=== PATIENT | female | born 1985 | race Caucasian/White ===

== ENCOUNTER 2021-02-05 15:16 | Emergency (ER) | payer SELFPAY ==
[~2021-02-05] VITALS: Ht 170.2 cm; Wt 390.0 kg
[2021-02-05] MEDS ORDERED: FAMOTIDINE 20 MG/2 ML VIAL IVP ONE (16:00)
[2021-02-05] MEDS ORDERED: IV NORMAL SALINE 1000ML BAG 1,000 ML IV ONE (16:00)
[2021-02-05] MEDS ORDERED: ONDANSETRON PF 4 MG/2 ML VIAL. IVP ONE (16:00)
--- NOTE | 2021-02-05 16:23 | RAD ---
EXAMINATION: Chest radiograph. VIEWS: Single view COMPARISON: None INDICATION:35 years, Female, chest pain. FINDINGS: Normal cardiomediastinal silhouette. No focal consolidation. No pleural effusion or pneumothorax. No acute osseous process. IMPRESSION: No acute cardiopulmonary process. Electronically signed by: Mini June MD (02/05/2021 4:21 PM) [facility]
--- NOTE | 2021-02-05 17:30 | PHYS DOC ---
Past Medical History Past Medical History: Hypertension Additional Past Medical Histor: PCOS (JOANIE ASHRAF DO) Past Surgical History: Cholecystectomy (JOANIE ASHRAF DO) Smoking Status: Never Smoker Alcohol Use: Rarely Drug Use: Marijuana (JOANIE ASHRAF DO) General Adult EDM: Chief Complaint: CHEST WALL PAIN HPI: HPI: Patient is a 35 year female presents with history of substernal chest pain and nausea which started just prior to arrival while patient was driving. Denies fever/chills. Denies leg swelling or calf tenderness. Cardiac risk factors for HTN. Denies trauma. Denies . Denies known exposure to COVID-19. (JOANIE ASHRAF DO) Review of Systems: Review of Systems: Constitutional: Denies fever or chills Eyes: Denies redness or eye pain HENT: Denies nasal congestion or sore throat Respiratory: Denies cough or shortness of breath Cardiovascular: Reports chest pain and palpitations GI: Denies abdominal pain; reports nausea and vomiting : Denies dysuria or hematuria Musculoskeletal: Denies back pain or joint pain Integument: Denies rash or skin lesions Neurologic: Denies headache, focal weakness or sensory changes Complete systems were reviewed and found to be within normal limits, except as documented in this note. (JOANIE ASHRAF DO) Heart Score: C/O Chest Pain: Yes HEART Score for Chest Pain: HEART Score for Chest Pain Response (Comments) Value History Slighlty/Non-Suspicious 0 ECG Normal 0 Age < 45 0 Risk Factors 1 or 2 Risk Factors 1 Total 1 (JOANIE ASHRAF DO) Current Medications: Current Medications Medications (Trade) Dose Ordered Sig/Leonel Start Time Stop Time Status Last Admin Dose Admin Famotidine (Pepcid Vial) 20 mg 1X ONCE 02/05/21 16:00 02/05/21 16:56 DC Ondansetron HCl (Zofran) 4 mg 1X ONCE 02/05/21 16:00 02/05/21 16:56 DC Sodium Chloride 1,000 ml @ 1,000 mls/hr 1X ONCE 02/05/21 16:00 02/05/21 16:59 DC (JOANIE ASHRAF DO) Allergies: Allergies: Allergies Coded Allergies Type Severity Reaction Last Updated Verified vancomycin Allergy Unknown 02/05/21 Yes (JOANIE ASHRAF DO) Physical Exam: PE: Constitutional: Well developed, morbidly obese, no acute distress, non-toxic appearance HENT: Normocephalic, atraumatic Eyes: Conjunctiva normal, no discharge Neck: Normal range of motion, supple Lungs & Thorax: No respiratory distress, equal chest rise and fall Abdomen: Soft, no tenderness Skin: Warm, dry, no erythema, no rash Extremities: No calf tenderness, ROM intact, no edema Neurologic: Alert and oriented X 3, no focal deficits noted Psychologic: Affect normal, judgment normal (JOANIE ASHRAF DO) Current Patient Data: Labs: Laboratory Tests Test 02/05/21 15:49 POC Urine HCG, Qualitative Hcg negative (Negative) (JOANIE ASHRAF DO) Labs: Laboratory Tests Test 02/05/21 15:49 02/05/21 18:00 Bedside Urine HCG, Qualitative Hcg negative White Blood Count 17.6 x10^3/uL Red Blood Count 4.13 x10^6/uL Hemoglobin 12.9 g/dL Hematocrit 38.0 % Mean Corpuscular Volume 92 fL Mean Corpuscular Hemoglobin 31 pg Mean Corpuscular Hemoglobin Concent 34 g/dL Red Cell Distribution Width 14.6 % Platelet Count 277 x10^3/uL Neutrophils (%) (Auto) 75 % Lymphocytes (%) (Auto) 18 % Monocytes (%) (Auto) 6 % Eosinophils (%) (Auto) 1 % Basophils (%) (Auto) 0 % Neutrophils # (Auto) 13.2 x10^3/uL Lymphocytes # (Auto) 3.1 x10^3/uL Monocytes # (Auto) 1.0 x10^3/uL Eosinophils # (Auto) 0.2 x10^3/uL Basophils # (Auto) 0.0 x10^3/uL Sodium Level 139 mmol/L Potassium Level 3.5 mmol/L Chloride Level 102 mmol/L Carbon Dioxide Level 29 mmol/L Anion Gap 8 Blood Urea Nitrogen 17 mg/dL Creatinine 0.8 mg/dL Estimated GFR (Cockcroft-Gault) 82.1 BUN/Creatinine Ratio 21 Glucose Level 91 mg/dL Calcium Level 8.3 mg/dL Magnesium Level 1.8 mg/dL Total Bilirubin 1.1 mg/dL Aspartate Amino Transf (AST/SGOT) 26 U/L Alanine Aminotransferase (ALT/SGPT) 42 U/L Alkaline Phosphatase 54 U/L Creatine Kinase 83 U/L Creatine Kinase MB (Mass) 0.7 ng/mL Creatine Kinase MB Relative Index 0.8 % Troponin I Quantitative < 0.017 ng/mL Total Protein 7.1 g/dL Albumin 3.4 g/dL Albumin/Globulin Ratio 0.9 Lipase 64 U/L Current Medications Medications (Trade) Dose Ordered Sig/Leonel Route PRN Reason Start Time Stop Time Status Last Admin Dose Admin Sodium Chloride 1,000 ml @ 1,000 mls/hr 1X ONCE IV 02/05/21 16:00 02/05/21 16:59 DC 02/05/21 17:49 Ondansetron HCl (Zofran) 4 mg 1X ONCE IVP 02/05/21 16:00 02/05/21 16:56 DC 02/05/21 17:50 Famotidine (Pepcid Vial) 20 mg 1X ONCE IVP 02/05/21 16:00 02/05/21 16:56 DC 02/05/21 17:50 (PRATEEK WALLACE DO) EKG: EKG: @1531 NSR at 87bpm, NO ST elevation, QRS 86ms, QT/QTc 380/463ms (JOANIE ASHRAF DO) Radiology/Procedures: Radiology/Procedures: PROCEDURE: CHEST AP ONLY EXAMINATION: Chest radiograph. VIEWS: Single view COMPARISON: None INDICATION:35 years, Female, chest pain. FINDINGS: Normal cardiomediastinal silhouette. No focal consolidation. No pleural effusion or pneumothorax. No acute osseous process. IMPRESSION: No acute cardiopulmonary process. Electronically signed by: Mini June MD (02/05/2021 4:21 PM) [facility] (JOANIE ASHRAF DO) Course & Med Decision Making: Course & Med Decision Making Pertinent Labs and Imaging studies reviewed. (See chart for details) Patient with low cardiac risk factors presents with report of chest discomfort and nausea. Pain reproducible with palpation of sternum. EKG stable. Chest x- ray without acute process. Labs obtained and pending. Symptomatic treatment provided. 1800- Signout given to Dr. Wallace for further evaluation and final disposition. Discussed current findings and plan with patient and family, who acknowledge understanding and agreement. (JOANIE ASHRAF DO) Course & Med Decision Making I assumed care of patient after comprehensive ER work-up I repeated certain aspects of history and physical exam. Patient has had recent URI currently on antibiotic therapy. Reports atypical chest pain today that is reproducible. She is not vaccinated against COVID-19. I reviewed heart score with patient at length. Joint decision made to discharge home with continued supportive care practices. Given unvaccinated state and symptoms, decision made to test for COVID-19 with results pending. Appropriate precautions discussed at length. Strict return precautions were discussed with good understanding by patient and significant other at bedside. All questions and concerns addressed prior to ER departure (PRATEEK WALLACE DO) Darrel Disclaimer: Darrel Disclaimer: This electronic medical record was generated, in whole or in part, using a voice recognition dictation system. (JOANIE ASHRAF DO) Departure Departure Impression: Primary Impression: Atypical chest pain Additional Impression: Person under investigation for COVID-19 Disposition: 01 HOME / SELF CARE / HOMELESS Condition: STABLE Referrals: [facility] (PCP) Patient Instructions: Chest Pain (Nonspecific), Chest Wall Pain Additional Instructions: You were seen for atypical chest pain, constellation of upper respiratory symptoms, and possible infection with COVID-19. Your physical exam and c omprehensive ER work-up was reassuring. Your chest x-ray was normal. We tested you for COVID-19 but this test does not come back for 1 to 2 days. In the meantime you need to quarantine yourself at home away from all other individuals, especially those who are elderly or have any other chronic health issues or an immunocompromised status. You should return to the ED if you develop worsening cough, shortness of breath, chest pain, or any other new or concerning symptoms. Alternate Tylenol and ibuprofen as needed for body aches and pain. If your test does come back positive you need to quarantine yourself for 10 days until symptom-free. You should make sure to drink plenty of fluids and get plenty of rest. JOANIE ASHRAF DO Feb 05, 2021 17:30 PRATEEK WALLACE DO Feb 05, 2021 18:59
[2021-02-05 18:21] LABS: BASO % 0 % (0-3); EOS # 0.2 x10^3/uL (0.0-0.7); EOS % 1 % (0-3); HEMOGLOBIN 12.9 g/dL (12.0-15.5); LYMPH # 3.1 x10^3/uL (1.0-4.8); LYMPH % 18 % (24-48); MEAN CORPUSCULAR HEMOGLOBIN 31 pg (25-35); MEAN CORPUSCULAR HGB CONC 34 g/dL (31-37); MEAN CORPUSCULAR VOLUME 92 fL (79-100); MONO % 6 % (0-9); NEUT # 13.2 x10^3/uL (1.8-7.7); NEUT % 75 % (31-73); PLATELET COUNT 277 x10^3/uL (140-400); RED BLOOD COUNT 4.13 x10^6/uL (3.50-5.40); RED CELL DISTRIBUTION WIDTH 14.6 % (11.5-14.5); WHITE BLOOD COUNT 17.6 x10^3/uL (4.0-11.0)
[2021-02-05 18:32] LABS: CALCIUM 8.3 mg/dL (8.5-10.1); CREATININE 0.8 mg/dL (0.6-1.0); GFR 82.1; POTASSIUM 3.5 mmol/L (3.5-5.1)
[2021-02-05 18:38] LABS: ALBUMIN 3.4 g/dL (3.4-5.0); ALBUMIN/GLOBULIN RATIO 0.9 (1.0-1.7); MAGNESIUM 1.8 mg/dL (1.8-2.4); TOTAL BILIRUBIN 1.1 mg/dL (0.2-1.0); TOTAL PROTEIN 7.1 g/dL (6.4-8.2)
[2021-02-05 18:40] VITALS: BP 141/67
--- NOTE | 2021-02-06 02:37 | EKG ---
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
== END 2021-02-05 19:45 | disposition home or self-care (01) ==
LOC: ER 15:16
DX: R07.2 Precordial pain (principal); R11.2 Nausea with vomiting, unspecified; I10 Essential (primary) hypertension; Z90.710 Acquired absence of both cervix and uterus; Z88.1 Allergy status to other antibiotic agents
CPT/HCPCS: 36415; 71045; 80053; 81025; 82553; 83690; 83735; 84484; 85025; 93005; 96361; 96374; 96375; 99285; J2405; J3490; J7030